=== PATIENT | male | born 1975 | race Caucasian/White ===

== ENCOUNTER 2016-11-12 18:53 | Emergency (ER) | payer MEDICARE, OTHER ==
[~2016-11-12] VITALS: Ht 172.7 cm; Wt 111.1 kg
== END 2016-11-12 20:06 | disposition home or self-care (01) ==
LOC: ED 18:53
DX: S61.210A Laceration without foreign body of right index finger without damage to nail, initial encounter (principal); W26.8XXA Contact with other sharp object(s), not elsewhere classified, initial encounter
CPT/HCPCS: 90471; 90715; 99282

== ENCOUNTER 2023-03-05 22:12 | Emergency (ER) | payer MEDICARE, OTHER ==
[~2023-03-05] VITALS: Ht 172.7 cm; Wt 143.2 kg
[2023-03-05] MEDS ORDERED: ESCITALOPRAM OX10 MG PO (22:26)
[2023-03-05] MEDS ORDERED: ATORVASTATIN CA20 MG PO (22:26)
[2023-03-05] MEDS ORDERED: METFORMIN HCL500 M1 PO (22:26)
[2023-03-05] MEDS ORDERED: LOSARTAN POTASS50 MG PO (22:26)
[2023-03-05 22:53] LABS: BASOPHILS 0.7 % (0-2); EOSINOPHILS 2.9 % (0-6); HEMATOCRIT 36.9 % (35.0-50.0); HEMOGLOBIN 12.5 g/dL (12.0-18.0); LYMPHOCYTES 35.1 % (24-44); MCH 31.6 (27-36); MCHC 33.8 g/dl (30-36); MCV 93.7 fl (81-99); MONOCYTES 14.2 % (0-12); NEUTROPHILS 47.1 % (39-80); PLATELET COUNT 232 K/uL (140-440); RBC 3.94 M/ul (4.3-5.7); RDW 13.9 (10.5-15.0)
[2023-03-05 23:09] LABS: ALBUMIN 4.1 g/dL (3.4-5.0); ALBUMIN/GLOBULIN RATIO 1.32 (1.1-2.4); ANION GAP 11.9 (7-21); BILIRUBIN, TOTAL 0.2 ng/dL (0.2-1.0); BUN/CREATININE RATIO 13.48 (6.0-28.6); CALCIUM 8.7 mg/dL (8.5-10.1); CREATININE, SERUM 0.89 mg/dL (0.70-1.30); MAGNESIUM 2.1 mg/dL (1.8-2.4); POTASSIUM 3.9 mmol/L (3.5-5.1); PROTEIN, TOTAL 7.2 g/dL (6.4-8.2)
[2023-03-05 23:42] VITALS: BP 134/67
--- NOTE | 2023-03-06 11:55 | EKG ---
[facility] [address] [facility] [facility] [place], [place] [address] Signed Normal sinus rhythm Normal ECG No previous ECGs available Confirmed by SHANA BARNARD MD ([id number]) on 03/06/2023 11:55:45 AM Electronically Signed By: SHANA BARNARD 03/06/23 1155 PATIENT NAME: SCOTT RUCKER ALEXIS Electrocardiogram DATE OF : 73 PHYSICIAN: SHANA BARNARD REPORT #: [id number] REPORT IS CONFIDENTIAL AND NOT TO BE RELEASED WITHOUT AUTHORIZATION
== END 2023-03-05 23:42 | disposition home or self-care (01) ==
LOC: ED 22:12
PROVIDERS: Internal Medicine
DX: R07.89 Other chest pain (principal); I10 Essential (primary) hypertension; E66.01 Morbid (severe) obesity due to excess calories; E11.9 Type 2 diabetes mellitus without complications; E78.00 Pure hypercholesterolemia, unspecified; Z79.84 Long term (current) use of oral hypoglycemic drugs; Z79.899 Other long term (current) drug therapy; Z68.42 Body mass index [BMI] 45.0-49.9, adult
CPT/HCPCS: 36415; 71045; 80053; 83735; 84484; 85025; 85379; 93005; 93010; A9270

== ENCOUNTER 2024-05-10 13:23 | Emergency (ER) | payer MEDICARE, OTHER ==
[~2024-05-10] VITALS: Ht 172.7 cm; Wt 121.6 kg
[~2024-05-10 13:23] MED LIST: ATORVASTATIN CA20 MG PO; ESCITALOPRAM OX10 MG PO; LOSARTAN POTASS50 MG PO; METFORMIN HCL500 M1 PO
[2024-05-10 14:50] LABS: INFLUENZA B NAA NEGATIVE (NEGATIVE); RESPIRATORY SYNCYTIAL VIR NAA POSITIVE (NEGATIVE)
[2024-05-10] MEDS ORDERED: MUCINEX COLD-F180 ML PO (16:42)
[2024-05-10 16:50] VITALS: BP 136/76
== END 2024-05-10 16:50 | disposition home or self-care (01) ==
LOC: ED 13:23
PROVIDERS: Emergency Medicine
DX: R05.9 Cough, unspecified (principal); R09.89 Other specified symptoms and signs involving the circulatory and respiratory systems; R50.9 Fever, unspecified; B97.4 Respiratory syncytial virus as the cause of diseases classified elsewhere; E11.9 Type 2 diabetes mellitus without complications; I10 Essential (primary) hypertension; E78.00 Pure hypercholesterolemia, unspecified; Z79.84 Long term (current) use of oral hypoglycemic drugs; Z79.899 Other long term (current) drug therapy
CPT/HCPCS: 87502; 99283; U0002